=== PATIENT | male | born 2000 | race American Indian/Alaskan Native ===

== ENCOUNTER 2025-07-29 13:28 | Emergency (ER) | payer OTHER ==
[~2025-07-29] VITALS: Ht 180.3 cm; Wt 89.0 kg
[2025-07-29] MEDS ORDERED: CEPHALEXIN500 M1 PO (17:55)
[2025-07-29] MEDS ORDERED: CEPHALEXIN MONOHYDRATE 500 MG HOME.PACK PO ONE (18:15)
[2025-07-29 18:25] VITALS: BP 116/66
== END 2025-07-29 18:31 | disposition home or self-care (01) ==
LOC: ED 13:28
DX: S92.425A Nondisplaced fracture of distal phalanx of left great toe, initial encounter for closed fracture (principal); S91.212A Laceration without foreign body of left great toe with damage to nail, initial encounter; X50.0XXA Overexertion from strenuous movement or load, initial encounter; Z88.0 Allergy status to penicillin; Z88.2 Allergy status to sulfonamides; Z88.8 Allergy status to other drugs, medicaments and biological substances
CPT/HCPCS: 11760; 73630; 99283-25; A9270